=== PATIENT | male | born 1945 | race Caucasian/White ===

== ENCOUNTER → 2018-04-08 | Outpatient (CLI) | payer MEDICARE ==
[~2018-04-08] MED LIST: CODLIVC; FENO160; GINKGO BILOBA30 MG; LISI20; Multivitamin1 EAC1; Vitamin K100 MCG; [UNRECOGNIZED DRUG - OTHER]
[2018-04-09 15:08] LABS: Stool Occult Bld Immuno 1 Negative (NEGATIVE)
== END | disposition home or self-care (01) ==
LOC: LAB SHORT 08:10 → LAB 08:10 → LAB FUT 04-04 14:15
PROVIDERS: Family Medicine
DX: Z12.11 Encounter for screening for malignant neoplasm of colon (principal)
CPT/HCPCS: G0328

== ENCOUNTER → 2022-04-12 | Outpatient (CLI) | payer OTHER ==
[2022-04-13 13:43] LABS: Creatinine, Urine Random 75.7 mg/dL (27.00-270.00); Microalb/Creat Ratio UR, Rand 65.258 mg/g (0.000-30.000); Microalbumin, Random Urine 49.4 mg/L (0.000-20.000)
== END | disposition home or self-care (01) ==
LOC: LAB 16:05 → LAB SHORT 16:05
PROVIDERS: Family Medicine
DX: E11.40 Type 2 diabetes mellitus with diabetic neuropathy, unspecified (principal)
CPT/HCPCS: 82043; 82570

== ENCOUNTER 2022-11-17 10:08 | Day surgery (SDC) | payer OTHER ==
[~2022-11-17] VITALS: Ht 177.8 cm; Wt 100.1 kg
[2022-11-17] MEDS ORDERED: TRULICITY0.75 MG/01 SQ (11:09)
[2022-11-17] MEDS ORDERED: ACTOS30 MG (11:09)
--- NOTE | 2022-11-17 11:15 | NUR ---
11/17/22 1115 Karen Gamez AT [address]5 [address] AT 1108
== END 2022-11-17 12:40 | disposition home or self-care (01) ==
LOC: ORSCSDS 10:08
PROVIDERS: Ophthalmology
PROC: 08DJ3ZZ Extraction of Right Lens, Percutaneous Approach (ICD-10-PCS; principal; 2022-11-17 11:30)
DX: H25.13 Age-related nuclear cataract, bilateral (principal); E11.9 Type 2 diabetes mellitus without complications; I10 Essential (primary) hypertension; E66.9 Obesity, unspecified; Z68.31 Body mass index [BMI] 31.0-31.9, adult; Z79.899 Other long term (current) drug therapy
CPT/HCPCS: 82947; J2001; J2250; J3010; J3301; J7040; V2632

== ENCOUNTER 2022-12-20 12:35 | Day surgery (SDC) | payer OTHER ==
[~2022-12-20] VITALS: Ht 177.8 cm; Wt 100.1 kg
[~2022-12-20 12:35] MED LIST changes: +ACTOS30 MG; +TRULICITY0.75 MG/01 SQ
[2022-12-20] MEDS ORDERED: Lisinopril2.5 MG (13:20)
[2022-12-20] MEDS ORDERED: Lisinopril2.5 MG PO (13:21)
== END 2022-12-20 14:42 | disposition home or self-care (01) ==
LOC: ORSCSDS 12:35
PROVIDERS: Ophthalmology
PROC: 08DK3ZZ Extraction of Left Lens, Percutaneous Approach (ICD-10-PCS; principal; 2022-12-20 14:00)
DX: E11.36 Type 2 diabetes mellitus with diabetic cataract (principal); H25.12 Age-related nuclear cataract, left eye; Z96.1 Presence of intraocular lens; I10 Essential (primary) hypertension; E66.9 Obesity, unspecified; Z68.31 Body mass index [BMI] 31.0-31.9, adult; Z79.899 Other long term (current) drug therapy
CPT/HCPCS: 82947; J2001; J2250; J3010; J3301; J7040; V2632

== ENCOUNTER → 2023-01-26 | Outpatient (CLI) | payer OTHER ==
[~2023-01-26] MED LIST changes: +Lisinopril2.5 MG; +Lisinopril2.5 MG PO
[2023-01-26 18:43] LABS: BASOPHILS ABSOLUTE AUTO 0.04 K/mm3 (0.00-0.23); BASOPHILS PERCENT AUTO 1 % (0-2); EOSINOPHILS ABSOLUTE AUTO 0.11 K/mm3 (0.00-0.68); EOSINOPHILS PERCENT AUTO 2 % (0-6); Hematocrit 31.9 % (37.0-53.0); Hemoglobin 10.7 g/dL (13.5-17.5); IMMATURE GRAN ABSOLUTE AUTO 0.06 K/mm3 (0.00-0.10); IMMATURE GRAN PERCENT AUTO 1 % (0-1); LYMPHOCYTES PERCENT AUTO 28 % (21-46); MONOCYTES ABSOLUTE AUTO 0.57 K/mm3 (0.16-1.47); MONOCYTES PERCENT AUTO 12 % (4-13); Mean Corpuscular HGB 30.3 pg (26.0-34.0); Mean Corpuscular HGB Conc 33.5 g/dL (31.5-36.5); Mean Corpuscular Volume 90 fL (80-100); Mean Platelet Volume 10.8 fL (9.1-12.4); NEUTROPHILS ABSOLUTE AUTO 2.61 K/mm3 (1.96-9.15); NEUTROPHILS PERCENT AUTO 56 % (41-73); Platelet Count 131 K/mm3 (150-400); RDW Coefficient Variation 13.3 % (11.7-14.2); RDW Standard Deviation 44.3 fL (35.1-46.3); Red Blood Cell Count 3.53 M/mm3 (4.30-5.90); White Blood Cell Count 4.69 K/mm3 (4.00-11.30)
[2023-01-26 19:10] LABS: Albumin/Globulin Ratio 1.1 (0.8-1.8); Bilirubin, Total 0.2 mg/dL (0.1-1.0); Bun/Creatinine Ratio 19.5 (12.0-20.0); Calcium, Blood 10.5 mg/dL (8.5-10.1); Creatinine, Blood 1.23 mg/dL (0.60-1.20); Globulin, Blood 3.7 g/dL (2.2-4.0); Thyroid Stimulating Hormone 1.1 uIU/mL (0.360-4.800); Total Protein, Blood 7.7 g/dL (6.4-8.2)
== END | disposition home or self-care (01) ==
LOC: LAB SHORT 15:55 → LAB 15:55
PROVIDERS: Nurse Practitioner Family
DX: E11.40 Type 2 diabetes mellitus with diabetic neuropathy, unspecified (principal); R59.1 Generalized enlarged lymph nodes
CPT/HCPCS: 80053; 83036; 84443; 85025; 85651

== ENCOUNTER → 2023-08-16 | Outpatient (CLI) | payer OTHER | LOC: LAB 10:38 → LAB SHORT 10:38 | DX: R82.998 Other abnormal findings in urine (principal) | CPT/HCPCS: 87086 ==